=== PATIENT | male | born 1945 | race Caucasian/White ===

== ENCOUNTER 2018-04-08 12:35 | Day surgery (SDC) | payer MEDICARE, OTHER, MEDICAID ==
[~2018-04-08] VITALS: Ht 170.2 cm; Wt 107.4 kg
[2018-04-08 13:17] VITALS: BP 153/84; PULSE 82; TEMP 98.6
[2018-04-08] MEDS ORDERED: LIPITOR 40MG TA40 MG PO (13:40)
[2018-04-08] MEDS ORDERED: ASPIRIN 81M81 MG/TA2 PO (13:40)
[2018-04-08] MEDS ORDERED: PLAVIX 75MG TAB75 MG PO (13:41)
[2018-04-08] MEDS ORDERED: NORVASC 10MG10 MG PO (13:41)
[2018-04-08] MEDS ORDERED: MULTI VITAMINS1 TAB PO (13:42)
--- NOTE | 2018-04-08 13:43 | NUR ---
TO RM AT 1245- CALL LIGHT IN REACH AT BEDSIDE.
[2018-04-08 17:20] VITALS: BP 133/68; PULSE 80; TEMP 97.5
--- NOTE | 2018-04-08 17:20 | NUR ---
TO RM 5 PER CART FROM PACU. ALERT ORIENTED X3, TALKING TO STAFF. WANTING TO GO TO BATHROOM. AMBULATED TO BATHROOM WITH ASSIST AND VOIDED. PATIENT STATED HEMATURIA, BUT HE HAS HAD THAT BEFORE COMING.
[2018-04-08] MEDS ORDERED: NORCO 325 MG-51 TAB PO (17:34)
[2018-04-08] MEDS ORDERED: SENOKOT S 50 MG1 TAB PO (17:34)
[2018-04-08 17:35] VITALS: BP 144/82; PULSE 75
--- NOTE | 2018-04-08 17:35 | NUR ---
RECEIVED PUDDING AND WATER. PATIENT DRINKING FRAPPUCCINO, FRIEND BROGHT IN.
[2018-04-08 17:43] VITALS: BP 133/68; PULSE 80; TEMP 97.5
--- NOTE | 2018-04-08 17:55 | NUR ---
ATE 100% AND TOLERATING PO WELL.
--- NOTE | 2018-04-08 18:00 | NUR ---
PATIENT AND JADA RECEIVED DISCHARGE INSTRUCTIONS AND VERBALIZED UNDERSTANDING. DISCONTINUED IV AND INT-CATHETER INTACT DRESSED WITH ASSIST OF JADA AND THEN BACK TO BATHROOM. PATIENT STATED HE WAS HAVING BLOOD CLOTS. INSTRUCTED PATIENT TO DRINK PLENTY OF WATER. DR BARBOSA TALKED TO JADA
--- NOTE | 2018-04-08 18:10 | NUR ---
DISCHARGED PER WC BY NURSING STAFF TO PRIVATE CAR IN CARE OF AUDREY
== END 2018-04-08 18:24 | disposition home or self-care (01) ==
LOC: SDCO 12:35
DX: C65.2 Malignant neoplasm of left renal pelvis (principal); I25.10 Atherosclerotic heart disease of native coronary artery without angina pectoris; I10 Essential (primary) hypertension; G47.33 Obstructive sleep apnea (adult) (pediatric); E78.5 Hyperlipidemia, unspecified; R73.03 Prediabetes; Z79.82 Long term (current) use of aspirin; Z79.899 Other long term (current) drug therapy; Z80.8 Family history of malignant neoplasm of other organs or systems; Z80.3 Family history of malignant neoplasm of breast; Z77.098 Contact with and (suspected) exposure to other hazardous, chiefly nonmedicinal, chemicals
CPT/HCPCS: C1758; C1769; C2617; J0690; J1100; J1885; J2405; J3010; J7120; Q9967

== ENCOUNTER 2018-12-30 11:49 | Day surgery (SDC) | payer MEDICARE, MEDICAID ==
[~2018-12-30] VITALS: Ht 170.2 cm; Wt 111.4 kg
[~2018-12-30 11:49] MED LIST: ASPIRIN 81M81 MG/TA2 PO; LIPITOR 40MG TA40 MG PO; MULTI VITAMINS1 TAB PO; NORCO 325 MG-51 TAB PO; NORVASC 10MG10 MG PO; PLAVIX 75MG TAB75 MG PO; SENOKOT S 50 MG1 TAB PO
[2018-12-30 12:26] VITALS: BP 176/97; PULSE 63; TEMP 97.9
[2018-12-30] MEDS ORDERED: CATAPRES 0.1MG0.1 MG PO (12:26)
--- NOTE | 2018-12-30 12:37 | NUR ---
Blood pressure re-checked after patient changed and comfort measures of warm blanket supplied. BP is 168/87 in right arm.
--- NOTE | 2018-12-30 12:38 | NUR ---
[place] [facility] [place] in hand. It is about half full. He states his last drink was at 1140. This RN told patient he is not to have anything else to drink prior to his procedure. Patient responds with "I have to have a teaspoon of water when I cough, else I won't stop coughing" and refuses to give up his water. Informed patient again that he is not to drink any more water prior to his procedure. He agrees and puts water bottle with belongings.
[2018-12-30 15:05] VITALS: BP 157/72; PULSE 59; TEMP 97.8
--- NOTE | 2018-12-30 15:05 | NUR ---
[place] [facility] [facility] [place], accompanied by MICROBIOLOGY LAB TECHNICIAN Nya. He is alert and oriented, sitting up in bed, chatting. He denies any pain or nausea. Monitoring applied - VSS on room air. BP is elevated - was elevated on admission. Patient states he is working on his BP medication dose with his PCP. Offered and receives juice to drink. Refuses food. Friend is at the bedside. Call light in reach.
[2018-12-30 15:20] VITALS: BP 170/91; PULSE 62
--- NOTE | 2018-12-30 15:20 | NUR ---
Patient is resting comfortably in room. Denies any pain ,nausea or need.
[2018-12-30 15:35] VITALS: BP 174/92; PULSE 61
--- NOTE | 2018-12-30 15:36 | NUR ---
Patient's BP is 174/92, which is close to his baseline on admission of 176/97. Confirmed with Gallo Leonard CRNA that patient may discharge home with elevated blood pressure at this time.
[2018-12-30 15:50] VITALS: BP 180/97; PULSE 58
--- NOTE | 2018-12-30 15:50 | NUR ---
Patient ambulates to restroom, voids, and returns to room. His BP remains elevated, but within the realm of his baseline BP readings. He is instructed to follow-up with his PCP. He denies any pain ,nausea, dizziness, blurred vision, or other symptoms at this time.
--- NOTE | 2018-12-30 16:13 | NUR ---
Patient states "I'm ready to go home". He has met discharge criteria. PIV removed with catheter intact and hemostasis achieved. Discharge instructions discussed, denies any questions, and verbalizes understanding. Changes to clothing independently. Escorted to exit via wheelchair. Discharged to home with ride in private vehicle at 1613.
== END 2018-12-30 16:13 | disposition home or self-care (01) ==
LOC: SDCO 11:49
DX: C65.2 Malignant neoplasm of left renal pelvis (principal); E78.5 Hyperlipidemia, unspecified; R16.0 Hepatomegaly, not elsewhere classified; I10 Essential (primary) hypertension; E66.9 Obesity, unspecified; G47.33 Obstructive sleep apnea (adult) (pediatric); R16.1 Splenomegaly, not elsewhere classified; I71.4 Abdominal aortic aneurysm, without rupture; I25.10 Atherosclerotic heart disease of native coronary artery without angina pectoris; Z79.82 Long term (current) use of aspirin; Z80.8 Family history of malignant neoplasm of other organs or systems; Z80.3 Family history of malignant neoplasm of breast; Z82.49 Family history of ischemic heart disease and other diseases of the circulatory system; Z79.02 Long term (current) use of antithrombotics/antiplatelets; Z85.528 Personal history of other malignant neoplasm of kidney
CPT/HCPCS: C1769; J0690; J1100; J2405; J2704; J3010; J7120

== ENCOUNTER 2020-02-16 12:33 | Day surgery (SDC) | payer MEDICARE, MEDICAID ==
[~2020-02-16] VITALS: Ht 170.2 cm; Wt 111.8 kg
[~2020-02-16 12:33] MED LIST changes: +CATAPRES 0.1MG0.1 MG PO
[2020-02-16] MEDS ORDERED: COZAAR 50MG50 MG/TAB PO (13:07)
[2020-02-16] MEDS ORDERED: TOPROL XL 25MG25 MG PO (13:08)
[2020-02-16] MEDS ORDERED: NORVASC 5MG5 MG/TAB PO (13:08)
[2020-02-16 13:22] VITALS: BP 155/93; PULSE 78; TEMP 98.5
[2020-02-16 15:45] VITALS: BP 153/75; PULSE 74; TEMP 97.8
--- NOTE | 2020-02-16 15:45 | NUR ---
Patient arrives to [facility] [place] [facility] via cart, accompanied by ALTO SINGER Nya. He is sitting up in bed, sipping water, alert and oriented. He has a kendall catheter to dependent drainage bag. There is a small amount of pink/clear urine in the bag. No clots are seen. He is offered and receives juice and a pudding. He denies pain or nausea. His friend is brought to the bedside.
[2020-02-16 15:57] VITALS: TEMP 97.8
[2020-02-16 16:00] VITALS: BP 162/86; PULSE 76
--- NOTE | 2020-02-16 16:00 | NUR ---
VSS and WNL on room air. Patient is tolerating PO well. Denies pain, nausea, or need.
[2020-02-16 16:15] VITALS: BP 164/86; PULSE 73
--- NOTE | 2020-02-16 16:15 | NUR ---
VSS and WNL on room air. Denies pain, nausea, or need.
--- NOTE | 2020-02-16 16:43 | NUR ---
Patient has met discharge criteria. Kendall catheter teaching is done with teachback. His ex- is present and verbalizes understanding as well. They are given supplies to care for the catheter and printed instructions. They are also supplied with a leg-bag if they choose to switch to that for comfort. Other discharge instructions are also discussed. 150mL of clear, pink urine is emptied from kendall drainage bag. PIV is removed with catheter intact and hemostasis achieved. Staff assists patient to change to his clothing. He is escorted to the exit via wheelchair by staff and discharged to home with ride in private vehicle at 1643.
--- NOTE | 2020-02-16 17:03 | NUR ---
When breaking down patient's chart, prescriptions for [place] and Cipro were found. Patient did not want to return to the hospital to collect. He states he does not want the pain medication and requests the cipro to be called in to his pharmacy. The cipro prescription is called in to his preferred pharmacy by Jayla Campbell RN. The [place] prescription is shredded.
== END 2020-02-16 16:43 | disposition home or self-care (01) ==
LOC: SDCO 12:33
DX: C67.0 Malignant neoplasm of trigone of bladder (principal); C64.2 Malignant neoplasm of left kidney, except renal pelvis; I10 Essential (primary) hypertension; Z95.820 Peripheral vascular angioplasty status with implants and grafts; Z20.828 Contact with and (suspected) exposure to other viral communicable diseases; Z79.82 Long term (current) use of aspirin; Z79.899 Other long term (current) drug therapy; Z80.3 Family history of malignant neoplasm of breast; Z95.828 Presence of other vascular implants and grafts; Z85.53 Personal history of malignant neoplasm of renal pelvis; Z80.8 Family history of malignant neoplasm of other organs or systems; Z79.02 Long term (current) use of antithrombotics/antiplatelets
CPT/HCPCS: A4314; C1769; C2617; J0690; J1100; J2405; J2704; J3010; J7120; Q9967